=== PATIENT | female | born 1965 | race Caucasian/White ===

== ENCOUNTER 2020-12-21 12:15 | Emergency (ER) | payer BC | END 2020-12-21 13:03 | disposition home or self-care (01) | LOC: ER1 12:15 | DX: I10 Essential (primary) hypertension (principal); R51.9 Headache, unspecified; F17.200 Nicotine dependence, unspecified, uncomplicated; Z90.710 Acquired absence of both cervix and uterus; Z90.89 Acquired absence of other organs | CPT/HCPCS: 99283 ==